=== PATIENT | male | born 1975 | race African-American/Black ===

== ENCOUNTER 2018-12-29 16:26 | Emergency (ER) | payer SELFPAY ==
[2018-12-29] MEDS ORDERED: ASPIRIN 81 MG TABLET, CHEWABLE PO ONE (17:02)
--- NOTE | 2018-12-29 17:05 | ER Document Report ---
ED Medical Screen (RME) - General Chief Complaint: Chest Pain Stated Complaint: CHEST PAIN Time Seen by Provider: 12/29/18 16:56 Primary Care Provider: RAMON PALOMINO MD [NO LOCAL MD] - Follow up as needed Mode of Arrival: Ambulatory Information source: Patient Notes: This 43-year-old male presents emergency department with complaints of some left-sided chest pressure. Reports it started this morning when he woke up. Also complains of some nausea diaphoresis and left arm pain. Patient reports the nausea and left arm pain started last night. Denies history of cardiac disease. Patient does smoke cigarettes and drink alcohol denies recreational drugs. Denies energy drinks. I have greeted and performed a rapid initial assessment of this patient. A comp rehensive ED assessment and evaluation of the patient, analysis of test results and completion of the medical decision making process will be conducted by additional ED providers. Dictation of this chart was performed using voice recognition software; therefore, there may be some unintended grammatical errors. TRAVEL OUTSIDE OF THE [place] IN LAST 30 DAYS: No - HPI Onset: Yesterday Onset/Duration: Sudden Quality of pain: Pressure - Related Data Allergies/Adverse Reactions: No Known Allergies Allergy (Verified 12/29/18 16:26) Past Medical History - General Information source: Patient - Social History Cigarette use (# per day): Yes Frequency of alcohol use: Occasional Lives with: Family Renal/ Medical History: Denies: Hx Peritoneal Dialysis Physical Exam - Vital signs Vitals: Temp Pulse Resp BP Pulse Ox 98.0 F 57 L 16 141/81 H 95 12/29/18 16:29 12/29/18 16:29 12/29/18 16:29 12/29/18 16:29 12/29/18 16:29 Course - Vital Signs Vital signs: Temp Pulse Resp BP Pulse Ox 98.0 F 57 L 16 141/81 H 95 12/29/18 16:29 12/29/18 16:29 12/29/18 16:29 12/29/18 16:29 12/29/18 16:29 - Laboratory Result Diagrams: 12/29/18 17:19 12/29/18 17:19 Laboratory results interpreted by me: 12/29/18 12/29/18 17:19 17:19 RDW 14.3 H Creatine Kinase 173 H Doctor's Discharge - Discharge Referrals: RAMON PALOMINO MD [NO LOCAL MD] - Follow up as needed
[2018-12-29 17:42] LABS: APPEARANCE,URINE CLEAR; BILIRUBIN,URINE NEGATIVE (NEGATIVE); COLOR,URINE YELLOW; GLUCOSE, URINE NEGATIVE (NEGATIVE); KETONES,URINE NEGATIVE (NEGATIVE); LEUKOCYTE ESTERASE,URINE NEGATIVE (NEGATIVE); NITRITE,URINE NEGATIVE (NEGATIVE); PROTEIN,URINE NEGATIVE (NEGATIVE); URINE SPECIFIC GRAVITY 1.025; UROBILINOGEN,URINE NEGATIVE mg/dL (<2.0)
[2018-12-29 17:44] LABS: ABSOLUTE LYMPHOCYTES (AUTO) 2.7 10^3/uL (0.5-4.7); ABSOLUTE MONOCYTES (AUTO) 0.5 10^3/uL (0.1-1.4); BASOPHILS % (AUTO) 0.3 % (0-2); EOSINOPHILS % (AUTO) 0.5 % (0-6); HEMATOCRIT 43.1 % (37.9-51.0); HEMOGLOBIN 14.2 g/dL (13.5-17.0); LYMPHOCYTES % (AUTO) 37.6 % (13-45); MEAN CORPUSCULAR HEMOGLOBIN 28.5 pg (27.0-33.4); MEAN CORPUSCULAR HGB CONC 32.9 g/dL (32.0-36.0); MEAN CORPUSCULAR VOLUME 87 fl (80-97); MONOCYTES % (AUTO) 7.1 % (3-13); PLATELET COUNT 303 10^3/uL (150-450); RED BLOOD COUNT 4.96 10^6/uL (4.35-5.55); RED CELL DISTRIBUTION WIDTH 14.3 % (11.5-14.0); SEGMENTED NEUTROPHILS % (AUTO) 54.5 % (42-78); TOTAL CELLS COUNTED % (AUTO) 100 %; WHITE BLOOD COUNT 7.3 10^3/uL (4.0-10.5)
[2018-12-29 18:00] LABS: ALBUMIN 4.3 g/dL (3.5-5.0); ALKALINE PHOSPHATASE 91 U/L (38-126); ANION GAP 5 (5-19); ASPARTATE AMINO TRANSFERASE 29 U/L (17-59); BILIRUBIN,DIRECT 0.1 mg/dL (0.0-0.4); BILIRUBIN,TOTAL 0.3 mg/dL (0.2-1.3); BLOOD UREA NITROGEN 16 mg/dL (7-20); CALCIUM 9.9 mg/dL (8.4-10.2); CARBON DIOXIDE 29 mmol/L (22-30); CHLORIDE 105 mmol/L (98-107); CREATINE KINASE 173 U/L (55-170); GLUCOSE 108 mg/dL (75-110); POTASSIUM 4.6 mmol/L (3.6-5.0); TOTAL PROTEIN 7.5 g/dL (6.3-8.2)
[2018-12-29 18:12] LABS: NT PRO BNP 33 pg/mL (<125)
[2018-12-29 18:13] LABS: TROPONIN I < 0.012 ng/mL
--- NOTE | 2018-12-29 18:49 | RADIOLOGY REPORT (SQ) ---
EXAM DESCRIPTION: CHEST 2 VIEWS COMPLETED DATE/TIME: 12/29/2018 6:39 pm REASON FOR STUDY: cp COMPARISON: None. EXAM PARAMETERS: NUMBER OF VIEWS: two views TECHNIQUE: Digital Frontal and Lateral radiographic views of the chest acquired. RADIATION DOSE: NA LIMITATIONS: none FINDINGS: LUNGS AND PLEURA: No pneumothorax. No consolidation or pleural effusion. Small area scarr ing the left upper lobe with punctate densities, possibly related to old trauma or procedure. MEDIASTINUM AND HILAR STRUCTURES: No masses or contour abnormalities. HEART AND VASCULAR STRUCTURES: Heart normal size. No evidence for failure. BONES: No acute findings. HARDWARE: None in the chest. OTHER: No other significant finding. IMPRESSION: NO ACUTE RADIOGRAPHIC FINDING IN THE CHEST. TECHNICAL DOCUMENTATION: JOB ID: [id number] [place]-72 2010 [employer]- All Rights Reserved Reading location - IP/workstation name: [email or web address]
[2018-12-29 22:02] VITALS: BP 128/86
--- NOTE | 2018-12-29 22:10 | ER Document Report ---
ED Cardiac - General Chief Complaint: Chest Pain Stated Complaint: CHEST PAIN Time Seen by Provider: 12/29/18 16:56 Primary Care Provider: [facility] [Provider Group] - Follow up as needed JESUS WHITNEY MD [ACTIVE STAFF] - 12/31/18 Mode of Arrival: Ambulatory Notes: Patient is a 43-year-old male that comes emergency department for chief complaint of chest pain. He states that he first noticed that his left arm felt strange and uncomfortable last night and he broke out into a sweat, however this resolved. This morning he had discomfort in his chest, discomfort in his left arm, and he again broke out into a sweat. He also states this happened later in the day. His became concerned and brought him to the emergency department. He states last night he also got nauseated and vomited once. He denies abdominal pain. He denies flank pain, fever/chills, difficulty breathing. He denies any current symptoms. He states he does have sore muscles over his chest but this is different from what he was feeling. He smokes, denies frequent alcohol, denies recreational drugs. Denies family history of [place]. TRAVEL OUTSIDE OF THE [place] IN LAST 30 DAYS: No - Related Data Allergies/Adverse Reactions: No Known Allergies Allergy (Verified 12/29/18 16:26) Past Medical History - General Information source: Patient - Social History Smoking Status: Current Every Day Smoker Cigarette use (# per day): Yes Smoking Education Provided: Yes - <3 min Frequency of alcohol use: Heavy Lives with: Family Family History: Reviewed & Not Pertinent Patient has suicidal ideation: No Patient has homicidal ideation: No Renal/ Medical History: Denies: Hx Peritoneal Dialysis Surgical Hx: Negative - Immunizations Immunizations up to date: Yes Hx Diphtheria, Pertussis, Tetanus Vaccination: Yes Review of Systems - Review of Systems Constitutional: No symptoms reported EENT: No symptoms reported Cardiovascular: See HPI Respiratory: No symptoms reported Gastrointestinal: See HPI Genitourinary: No symptoms reported Male Genitourinary: No symptoms reported Musculoskeletal: No symptoms reported Skin: No symptoms reported Hematologic/Lymphatic: No symptoms reported Neurological/Psychological: No symptoms reported Physical Exam - Vital signs Vitals: Temp Pulse Resp BP Pulse Ox 98.0 F 57 L 16 141/81 H 95 12/29/18 16:29 12/29/18 16:29 12/29/18 16:29 12/29/18 16:29 12/29/18 16:29 - Notes Notes: GENERAL: Alert, interacts well. No acute distress. HEAD: Normocephalic, atraumatic. EYES: Pupils equal, round, and reactive to light. Extraocular movements intact. ENT: Oral mucosa moist, tongue midline. Oropharynx unremarkable. Airway patent. LUNGS: Clear to auscultation bilaterally, no wheezes, rales, or rhonchi. No respiratory distress. HEART: Regular rate and rhythm. No murmur ABDOMEN: Soft, non-tender. Non-distended. Bowel sounds present in all 4 quadrants. GENITOURINARY: Deferred EXTREMITIES: Moves all 4 extremities spontaneously. No edema, normal radial and dorsalis pedis pulses bilaterally. No cyanosis. BACK: no cervical, thoracic, lumbar midline tenderness. No saddle anesthesia, normal distal neurovascular exam. Moves all extremities in full range of motion. NEUROLOGICAL: Alert and oriented x3. Normal speech. Cranial nerves II through XII grossly intact. PSYCH: Normal affect, normal mood. SKIN: Warm, dry, normal turgor. No rashes or lesions noted. Course - Re-evaluation Re-evalutation: Patient's described symptoms are actually very concerning, he states that intermittently gets pain, it is been worse with an episode where he broke out into a sweat, had pain in the left side of his chest radiating to his left shoulder which resolved with time. In addition to this patient has multiple T wave inversions anteriorly and inferiorly. I have no comparison EKG. Chest x-ray unremarkable, troponins are negative, work-up otherwise unremarkable. Patient denying current complaints. Because of his concerning reported symptoms and his abnormal EKG I did discuss with patient and discussed admission. Patient declines. I did discuss with Dr. Chavez. He states that if patient will not agree to admission then he needs to sign out AGAINST MEDICAL ADVICE. I discussed with patient again, I explained our concern, however patient states gratefulness but declines. He does ask for recommendations for follow-up, he does state that he will return if he worsens, he states that he understands that there is a risk that he could go home, have a heart attack, and . He still states he wants to leave. Patient is very alert, friendly, does not appear to be under the influence of any substances, no evidence of altered mental status, he is capable of making this decision. He did discuss with his . Patient signed out AGAINST MEDICAL ADVICE. - Vital Signs Vital signs: Temp Pulse Resp BP Pulse Ox 98.4 F 53 L 18 128/86 H 95 12/29/18 20:46 12/29/18 20:46 12/29/18 22:01 12/29/18 22:00 12/29/18 22:01 - Laboratory Result Diagrams: 12/29/18 17:19 12/29/18 17:19 Laboratory results interpreted by me: 12/29/18 12/29/18 17:19 17:19 RDW 14.3 H Creatine Kinase 173 H - EKG Interpretation by Me Additional EKG results interpreted by me: EKG shows sinus bradycardia at a rate of 54, QTC of 448. Borderline T wave inversions in leads II and III, also has T wave inversions in leads V3, V4, V5, V6. No ST segment changes in consecutive leads. No previous to compare to. Discharge - Discharge Clinical Impression: Chest pain Qualifiers: Chest pain type: unspecified Qualified Code(s): R07.9 - Chest pain, unspecified Condition: Stable Disposition: HOME, SELF-CARE Additional Instructions: Your symptoms and your EKG are concerning that the symptoms of pain you are having could be from your heart. You have declined admission to the hospital and signed out AGAINST MEDICAL ADVICE. If you do progress to a heart attack you could have severe disability or even . I do recommend that you return at any time here or at another medical facility. You have been provided with referrals to primary care, cardiology. Stop smoking, avoid heavy drinking, and I recommend that you take [id number] antacid such as famotidine. Referrals: [facility] [Provider Group] - Follow up as needed JESUS WHITNEY MD [ACTIVE STAFF] - 12/31/18
--- NOTE | 2018-12-30 01:54 | EKG REPORT ---
SEVERITY:- ABNORMAL ECG - SINUS RHYTHM LEFT ANTERIOR FASCICULAR BLOCK NONSPECIFIC T ABNORMALITIES, DIFFUSE LEADS : Confirmed by: My Cool MD 30-Dec-2018 01:54:05
== END 2018-12-29 22:59 | disposition home or self-care (01) ==
LOC: ER 16:26
DX: R07.9 Chest pain, unspecified (principal); R61 Generalized hyperhidrosis; M79.602 Pain in left arm; R11.2 Nausea with vomiting, unspecified; F17.210 Nicotine dependence, cigarettes, uncomplicated
CPT/HCPCS: 36415; 71046; 80053; 81001; 82550; 83690; 83880; 84484; 85025; 93005; 93010; 99285

== ENCOUNTER 2019-04-20 07:14 | Emergency (ER) | payer SELFPAY ==
--- NOTE | 2019-04-20 08:54 | ER Document Report ---
ED Neck/Back Problem - General Chief Complaint: Back Injury Stated Complaint: BACK PAIN Time Seen by Provider: 04/20/19 08:53 TRAVEL OUTSIDE OF THE [place] IN LAST 30 DAYS: No - HPI Notes: 43-year-old male to the emergency department with complaints of low back pain for the past several days. He states that one week ago he fell down 5-6 stairs in his home. He states that he just slipped at the week coming down the carpet. He states that he struck his low back and has been having pain since. He denies any numbness and tingling to his legs or pain into the back of his legs, saddle paresthesia, bladder bowel incontinence, inability to urinate, fevers, or any other injuries. He does not use IV drugs. He states he took some Motrin but that did not completely relieve his pain so his mom gave him 1 of her Tylenol 3's. He states that this did help but he was concerned when the pain did not get better. He states that he has more pain in the morning and feels stiff. He also has pain when twisting and getting up from sitting to standing. He denies any other symptoms. - Related Data Allergies/Adverse Reactions: No Known Allergies Allergy (Verified 04/20/19 08:02) Home Medications: NO MEDS Past Medical History - General Information source: Patient - Social History Smoking Status: Never Smoker Frequency of alcohol use: Occasional Drug Abuse: None Family History: Reviewed & Not Pertinent Patient has suicidal ideation: No Patient has homicidal ideation: No Renal/ Medical History: Denies: Hx Peritoneal Dialysis - Immunizations Immunizations up to date: Yes Hx Diphtheria, Pertussis, Tetanus Vaccination: Yes Review of Systems - Review of Systems Constitutional: denies: Chills, Fever EENT: No symptoms reported Cardiovascular: denies: Chest pain, Palpitations, Syncope, Dizziness, Lightheaded Respiratory: denies: Cough, Short of breath Gastrointestinal: denies: Abdominal pain, Diarrhea, Nausea, Vomiting Genitourinary: denies: Incontinence Musculoskeletal: Back pain. denies: Joint pain, Joint swelling Skin: No symptoms reported. denies: Rash Neurological/Psychological: No symptoms reported -: Yes All other systems reviewed and negative Physical Exam - Vital signs Vitals: Temp Pulse Resp BP Pulse Ox 98.2 F 65 16 134/80 H 95 04/20/19 07:18 04/20/19 07:18 04/20/19 07:18 04/20/19 07:18 04/20/19 07:18 Interpretation: Normal - General General appearance: Appears well, Alert In distress: None - HEENT Head: Normocephalic, Atraumatic Eyes: Normal Pupils: PERRL - Respiratory Respiratory status: No respiratory distress Chest status: Nontender. No: Accessory muscle use Breath sounds: Normal. No: Productive cough, Rales, Rhonchi, Wheezing Chest palpation: Normal - Cardiovascular Rhythm: Regular Heart sounds: Normal auscultation Murmur: No - Abdominal Inspection: Normal Distension: No distension Bowel sounds: Normal Tenderness: Nontender. No: McBurney's point, Lucero's sign Organomegaly: No organomegaly - Back Back: Nontender Notes: Nontender to palpation of the midline cervical and thoracic spine with no step-o ff deformity. There is tenderness to palpation to the lower midline lumbar spine. There is no step-off or deformity. Negative straight leg raise bilaterally. Patient can get up and walk without difficulty. He does have some pain when he is going from sitting to standing. He also has pain with twisting. However his back range of motion is fully intact against resistance with no weakness. - Extremities Notes: Nontender to palpation of bilateral upper extremity and bilateral lower extremity. Patient has full range of motion in bilateral upper extremity and bilateral lower extremity against resistance in flexion and extension with 5 out of 5 strength. Cap refill is intact. Pulses are intact and equal throughout. - Neurological Neuro grossly intact: Yes Cognition: Normal Orientation: AAOx4 [place] Coma Scale Eye Opening: Spontaneous [place] Coma Scale Verbal: Oriented [place] Coma Scale Motor: Obeys Commands Boom Coma Scale Total: 15 Speech: Normal Cranial nerves: Normal. No: Facial palsy, Forehead sparing, Gaze palsy, Sensory deficit, Tongue deviation Cerebellar coordination: Normal. No: Gait ataxia Motor strength normal: LUE, RUE, LLE, RLE Additional motor exam normals: Equal bacon skinner. No: Pronator drift Sensory: Normal - Psychological Associated symptoms: Normal affect, Normal mood - Skin Skin Temperature: Warm Skin Moisture: Dry Skin Color: Normal Course - Re-evaluation Re-evalutation: 04/20/19 10:31 X-ray lumbar spine preliminary reading by me. No acute fracture, noted degenerative disc disease at the level of L5-S1 Impression: Fall, lumbar back strain. Incidental finding of degenerative disc disease on x-ray. No fracture seen no subluxation seen. We will send patient home with muscle relaxants, NSAIDs, small amount t#3. Encouraged to apply warm compresses. We will have him follow with orthopedist if his symptoms do not improve in the next 10 days. He has no straight leg raise, he has no emergent back symptoms. Was encouraged to return if any develop. - Vital Signs Vital signs: Temp Pulse Resp BP Pulse Ox 98.2 F 65 16 134/80 H 95 04/20/19 07:18 04/20/19 07:18 04/20/19 07:18 04/20/19 07:18 04/20/19 07:18 - Diagnostic Test Radiology reviewed: Image reviewed Discharge - Discharge Clinical Impression: Degenerative disc disease at L5-S1 level Fall Qualifiers: Encounter type: initial encounter Qualified Code(s): W19.XXXA - Unspecified fall, initial encounter Lumbar strain Qualifiers: Encounter type: initial encounter Qualified Code(s): S39.012A - Strain of muscle, fascia and tendon of lower back, initial encounter Condition: Stable Disposition: HOME, SELF-CARE Instructions: Low Back Pain ([facility]), Muscle Strain ([facility]), Warm Packs ([facility]) Additional Instructions: Push fluids. Apply warm compresses for 3 times a day 20 minutes at a time. Gentle stretching. Take medicine as prescribed. If your pain does not improve in the next 10 days follow-up with orthopedist. Follow-up with primary care physician next week. Return if any bladder or bowel incontinence, numbness and tingling around the rectum or penis, pain and weakness into the legs, inability to urinate, fevers. Prescriptions: Cyclobenzaprine HCl [Flexeril 10 mg Tablet] 10 mg PO TID #21 tablet Ibuprofen [Motrin 800 mg Tablet] 800 mg PO Q8H PRN #30 tab PRN Reason: Acetaminophen with Codeine [Tylenol #3 Tablet] 1 each PO Q6H PRN #9 tablet PRN Reason: Referrals: [facility] [Provider Group] - Follow up in 1 week JORGITO DE LA TORRE JR, DO [ACTIVE PROVISIONAL STAFF] - Follow up as needed
[2019-04-20] MEDS ORDERED: KETOROLAC TROMETHAMINE 60 MG/2 ML SDV IM ONE (10:27)
--- NOTE | 2019-04-20 10:36 | RADIOLOGY REPORT (SQ) ---
EXAM DESCRIPTION: L SPINE WHOLE COMPLETED DATE/TIME: 04/20/2019 10:03 am REASON FOR STUDY: fall, lumbar back pain COMPARISON: None. NUMBER OF VIEWS: Five views including obliques. TECHNIQUE: AP, lateral, oblique, and sacral radiographic images acquired of the lumbar spine. LIMITATIONS: None. FINDINGS: MINERALIZATION: Normal. SEGMENTATION: Sacralization of L5 to left of midline with a pseudoarthrosis. ALIGNMENT: Normal. VERTEBRAE: Maintained height. No fracture or worrisome bone lesion. DISCS: Disc space narrowing L5-S1. POSTERIOR ELEMENTS: Pedicles and facets are intact. No pars defect or posterior arch defects. HARDWARE: None in the spine. PARASPINAL SOFT TISSUES: Normal. PELVIS: Intact as visualized. No fractures or worrisome bone lesions. SI joints intact. OTHER: No other significant finding. IMPRESSION: No acute findings. TECHNICAL DOCUMENTATION: JOB ID: [id number] [employer]- All Rights Reserved Reading location - IP/workstation name: [email or web address]
[2019-04-20 10:48] VITALS: BP 143/79
== END 2019-04-20 10:51 | disposition home or self-care (01) ==
LOC: ER 07:14
DX: S39.012A Strain of muscle, fascia and tendon of lower back, initial encounter (principal); M51.37 Other intervertebral disc degeneration, lumbosacral region; W10.9XXA Fall (on) (from) unspecified stairs and steps, initial encounter; Y92.009 Unspecified place in unspecified non-institutional (private) residence as the place of occurrence of the external cause
CPT/HCPCS: 72110; J1885; 96372; 99283

== ENCOUNTER 2019-05-09 07:31 | Emergency (ER) | payer SELFPAY ==
--- NOTE | 2019-05-09 10:29 | ER Document Report ---
HPI - HPI Patient complains to provider of: finger infection Time Seen by Provider: 05/09/19 10:02 Onset: This morning Onset/Duration: Sudden Pain Level: 2 Notes: 44-year-old male to the emergency department with complaints of right index finger pain and swelling around his nail bed that he first noticed this morning. He does admit that he bites his fingernails. He states that it is throbbing with pain. He has not taken anything for the pain. He denies any injury to the finger. He denies any other complaints today. He is right-hand dominant. - CONSTITUTIONAL Constitutional: DENIES: Fever, Chills - EENT EENT: DENIES: Sore Throat, Ear Pain, Eye problems - NEURO Neurology: DENIES: Headache, Weakness, Vision blurred, Dizzinesss / Vertigo - CARDIOVASCULAR Cardiovascular: DENIES: Chest pain - RESPIRATORY Respiratory: DENIES: Trouble Breathing, Coughing - REPRODUCTIVE Reproductive: DENIES: : - MUSCULOSKELETAL Musculoskeletal: DENIES: Extremity pain Past Medical History - General Information source: Patient - Social History Smoking Status: Current Every Day Smoker Chew tobacco use (# tins/day): No Frequency of alcohol use: Occasional Drug Abuse: None Family History: Reviewed & Not Pertinent Patient has suicidal ideation: No Patient has homicidal ideation: No Renal/ Medical History: Denies: Hx Peritoneal Dialysis - Immunizations Immunizations up to date: Yes Hx Diphtheria, Pertussis, Tetanus Vaccination: Yes Vertical Provider Document - CONSTITUTIONAL Exam Limitations: No Limitations General Appearance: WD/WN, No Apparent Distress - INFECTION CONTROL TRAVEL OUTSIDE OF THE [place] IN LAST 30 DAYS: No - HEENT HEENT: Atraumatic, PERRLA - NECK Neck: Normal Inspection, Supple - RESPIRATORY Respiratory: Breath Sounds Normal. negative: Rales, Rhonchi, Wheezing - CARDIOVASCULAR Cardiovascular: Regular Rate, Regular Rhythm, No Murmur - GI/ABDOMEN Gastrointestinal: Abdomen Soft. negative: Abdomen Tender, Abdominal Guarding, Abdominal Rebound, Abdominal Mass - MUSCULOSKELETAL/EXTREMETIES Notes: to the right index finger there is noted erythema, edema, and likely purulence surrounding the nailbed most consistent with paronychia. The erythema does not extend into the pad of the finger to suggest felon. There is no circumferential edema, no TTP along the tendon sheath, and the finger is not stuck in flexion. cap refill is less than 2 sec. FROM of all fingers against resistance in extension, flexion, adduction, abduction. No snuff box tenderness bilaterally. Radial pulses intact and equal. - NEURO Level of Consciousness: Awake Motor/Sensory: No Motor Deficit, No Sensory Deficit, No Pronator Drift - DERM Integumentary: Warm Notes: see MS for further discussion of right index finger paronychia. Course - Re-evaluation Re-evalutation: 05/09/19 Impression: Right index finger paronychia. Patient tolerated I and D well. Will place on ABx. Also will write for Motrin. PCP follow up in one week. Return if worsening pain, redness, swelling, or fevers. - Vital Signs Vital signs: Temp Pulse Resp BP Pulse Ox 97.9 F 71 16 134/87 H 95 05/09/19 07:43 05/09/19 07:43 05/09/19 07:43 05/09/19 07:43 05/09/19 07:43 Procedures - Incision and Drainage Right Finger 2nd digit Type: Simple Anesthetic type: 1% Lidocaine mL's of anesthetic: 5 Blade size: 11 I&D procedure: Betadine prep applied Incision Method: Incision made by scalpel Amount/type of drainage: bloody purulent discharge from around the nailbed. Notes: 05/09/19 digital block was performed to the right index finger. Once anesthesized, an 11 blade scalpel was inserted along the edge of the nailbed where bloody and purulent drainage erupted from the site. Patient tolerated the procedure well. Discharge - Discharge Clinical Impression: Paronychia of finger Qualifiers: Laterality: right Qualified Code(s): L03.011 - Cellulitis of right finger Condition: Stable Disposition: HOME, SELF-CARE Instructions: Paronychia ([facility]), Trimethoprim-Sulfa ([facility]) Additional Instructions: COMPLETE ALL ANTIBIOTICS. TRY NOT TO BITE NAILS. CLEAN DAILY WITH WARM SOAPY WATER. MOTRIN FOR PAIN. MAY APPLY WARM COMPRESS THREE TIMES A DAY FOR 15 MINUTES. RETURN IF WORSENING PAIN, REDNESS, SWELLING, OR FEVERS. Prescriptions: Ibuprofen [Motrin 600 mg Tablet] 600 mg PO Q8HP PRN #24 tablet PRN Reason: Sulfamethoxazole/Trimethoprim [Bactrim Ds Tablet] 1 each PO BID #20 tablet Referrals: [facility] [Provider Group] - Follow up in 1 week (for wound check)
[2019-05-09 11:11] VITALS: BP 142/95
== END 2019-05-09 11:18 | disposition home or self-care (01) ==
LOC: ER 07:31
DX: L03.011 Cellulitis of right finger (principal); F17.200 Nicotine dependence, unspecified, uncomplicated
CPT/HCPCS: 99283

== ENCOUNTER 2020-03-06 10:49 | Emergency (ER) | payer MEDICAID ==
[2020-03-06] MEDS ORDERED: METRONIDAZOLE 500 MG TABLET PO ONE (11:18)
[2020-03-06] MEDS ORDERED: AZITHROMYCIN 250 MG TABLET PO ONE (11:18)
[2020-03-06] MEDS ORDERED: CEFTRIAXONE INJ 250 MG VIAL IM ONE (11:18)
[2020-03-06] MEDS ORDERED: LIDOCAINE 1% INJ (10 MG/ML) 10 ML MDV INJ ONE (11:19)
--- NOTE | 2020-03-06 11:19 | ER Document Report ---
HPI - HPI Patient complains to provider of: Dysuria Time Seen by Provider: 03/06/20 11:17 Onset: Yesterday Quality of pain: Burning Pain Level: 2 Context: Patient presents complaining of dysuria and concerns about possible UTI. Patient reports symptoms started yesterday. Patient denies any abdominal tenderness or back pain. Patient denies any fever. Patient does report recent unprotected sex with a new partner. Associated Symptoms: denies: Fever, Nausea, Vomiting Exacerbated by: Denies Relieved by: Denies Similar symptoms previously: No Recently seen / treated by doctor: No - ROS ROS below otherwise negative: Yes Systems Reviewed and Negative: Yes All other systems reviewed and negative - CONSTITUTIONAL Constitutional: DENIES: Fever, Chills - GASTROINTESTINAL Gastrointestinal: DENIES: Abdominal Pain - URINARY Urinary: REPORTS: Dysuria - MUSCULOSKELETAL Musculoskeletal: DENIES: Back Pain - DERM Skin Color: Normal Skin Problems: None Past Medical History - General Information source: Patient - Social History Smoking Status: Never Smoker Frequency of alcohol use: Occasional Drug Abuse: None Occupation: none Family History: Reviewed & Not Pertinent - Medical History Medical History: Negative Renal/ Medical History: Denies: Hx Peritoneal Dialysis Surgical Hx: Negative - Immunizations Immunizations up to date: Yes Hx Diphtheria, Pertussis, Tetanus Vaccination: Yes Vertical Provider Document - CONSTITUTIONAL Agree With Documented VS: Yes Exam Limitations: No Limitations General Appearance: WD/WN, No Apparent Distress - INFECTION CONTROL TRAVEL OUTSIDE OF THE [place] IN LAST 30 DAYS: No - HEENT HEENT: Atraumatic, Normocephalic - NECK Neck: Normal Inspection, Supple - RESPIRATORY Respiratory: Breath Sounds Normal, No Respiratory Distress - CARDIOVASCULAR Cardiovascular: Regular Rate, Regular Rhythm - GI/ABDOMEN Gastrointestinal: Abdomen Soft - BACK Back: Normal Inspection. negative: CVA Tenderness-Right, CVA Tenderness-Left - MUSCULOSKELETAL/EXTREMETIES Musculoskeletal/Extremeties: MAEW, FROM - NEURO Level of Consciousness: Awake, Alert, Appropriate Motor/Sensory: No Motor Deficit - DERM Integumentary: Warm, Dry, No Rash Course - Vital Signs Vital signs: Temp Pulse Resp BP Pulse Ox 99.0 F 66 18 134/78 H 97 03/06/20 11:01 03/06/20 11:01 03/06/20 11:01 03/06/20 11:01 03/06/20 11:01 - Laboratory Laboratory results interpreted by me: 03/06/20 12:30 Labs- All tests 24 hr 03/06/20 11:30 Urine Color YELLOW Urine Appearance CLEAR Urine pH 5.0 Ur Specific [place] 1.032 Urine Protein 30 H Urine Glucose (UA) NEGATIVE Urine Ketones NEGATIVE Urine Blood NEGATIVE Urine Nitrite NEGATIVE Urine Bilirubin NEGATIVE Urine Urobilinogen NEGATIVE Ur Leukocyte Esterase NEGATIVE Urine WBC (Auto) 1 Urine RBC (Auto) 1 Squamous Epi Cells Auto <1 Urine Mucus (Auto) OCC Urine Ascorbic Acid 40 H Discharge - Discharge Clinical Impression: Dysuria, Concern about STD in male without diagnosis Condition: Stable Disposition: HOME, SELF-CARE Instructions: Azithromycin ([facility]), Metronidazole ([facility]), Rocephin ([facility]) Additional Instructions: Return immediately for any new or worsening symptoms Followup with your primary care provider, call tomorrow to make a followup appointment Culture is still pending, we will call if you need any different treatment Referrals: JOHN,NO [Primary Care Provider] - Follow up as needed [facility] [NO LOCAL MD] - Follow up as needed
[2020-03-06 12:18] LABS: APPEARANCE,URINE CLEAR; BILIRUBIN,URINE NEGATIVE (NEGATIVE); COLOR,URINE YELLOW; GLUCOSE, URINE NEGATIVE (NEGATIVE); KETONES,URINE NEGATIVE (NEGATIVE); LEUKOCYTE ESTERASE,URINE NEGATIVE (NEGATIVE); NITRITE,URINE NEGATIVE (NEGATIVE); PROTEIN,URINE 30 mg/dL (NEGATIVE); URINE SPECIFIC GRAVITY 1.032; UROBILINOGEN,URINE NEGATIVE mg/dL (<2.0)
[2020-03-06 12:35] VITALS: BP 133/90
[2020-03-06 13:42] LABS: CHLAM PCR NOT DETECTED (NOT DETECT)
== END 2020-03-06 12:32 | disposition home or self-care (01) ==
LOC: ER 10:49
DX: R30.0 Dysuria (principal); Z20.2 Contact with and (suspected) exposure to infections with a predominantly sexual mode of transmission
CPT/HCPCS: 99284; 96372; 81001; 87491; 87591; Q0144; J3490 ×2; J0696

== ENCOUNTER 2020-03-07 12:15 | Emergency (ER) | payer MEDICAID ==
--- NOTE | 2020-03-07 12:49 | ER Document Report ---
ED General - General Stated Complaint: COUGH, BODY ACHES, CHILLS Time Seen by Provider: 03/07/20 12:49 Primary Care Provider: IMAN MARRERO DO [NO LOCAL MD] - Follow up as needed TRAVEL OUTSIDE OF THE [place] IN LAST 30 DAYS: No - HPI Notes: 44-year-old male presents emergency room for complaints of having congestion, body aches and a sore throat that started last night. Patient states he has not been exposed to "as far as he now has never been tested for COVID and has not been around anybody that he thinks is positive for COVID. Patient has not tried any [id number] medications, states is worse with time, nothing makes better. Patient is unsure if he has any seasonal allergies but does not take any antihistamines. Eating and drinking without any issues. Patient was not sure if the symptoms may be because he is HIV because he googled last night that cold symptoms can mimic HIV. denies fevers, chills, chest pain,palpitations, shortness of breath, dyspnea, nausea, vomiting, diarrhea, abdominal pain, hematuria,blurred vision, double vision, loss of vision, speech changes, LH, dizziness, syncope, headaches, wheezing, neck pain, weakness, bowel or bladder dysfunction, saddle anesthesia, numbness or tingling in bilateral upper or lower extremities equally, muscle paralysis, weakness in bilateral upper or lower extremities equally or rash. MEDICATIONS: I agree with the patient medications as charted by the RN. ALLERGIES: I agree with the allergies as charted by the RN. PAST MEDICAL HISTORY/PAST SURGICAL HISTORY: Reviewed and agree as charted by RN. SOCIAL HISTORY: Reviewed and agree as charted by RN. FAMILY HISTORY: No significant familial comorbid conditions directly related to patient complaint EXAM: Reviewed vital signs as charted by RN. REVIEW OF SYSTEMS:reviewed vital signs by RN CONSTITUTIONAL : Denies fever, chills, or sweats. Denies recent illness. EENT: Denies eye, ear, throat, or mouth pain or symptoms. Denies nasal or sinus congestion or discharge. Denies throat, tongue, or mouth swelling or difficulty swallowing. CARDIOVASCULAR: Denies chest pain. Denies palpitations or racing or irregular heart beat. Denies ankle edema. RESPIRATORY: Denies cough, cold, or chest congestion. Denies shortness of breath, difficulty breathing, or wheezing. GASTROINTESTINAL: Denies abdominal pain or distention. Denies nausea, vomiting, or diarrhea. Denies blood in vomitus, stools, or per rectum. Denies black, tarry stools. Denies constipation. GENITOURINARY: Denies difficulty urinating, painful urination, burning, frequency, blood in urine, or discharge. MUSCULOSKELETAL: Denies back or neck pain or stiffness. Denies joint pain or swelling. SKIN: Denies rash, lesions or sores. HEMATOLOGIC : Denies easy bruising or bleeding. LYMPHATIC: Denies swollen, enlarged glands. NEUROLOGICAL: Denies confusion or altered mental status. Denies passing out or loss of consciousness. Denies dizziness or lightheadedness. Denies headache. Denies weakness or paralysis or loss of use of either side. Denies problems with gait or speech. Denies sensory loss, numbness, or tingling. Denies seizures. PSYCHIATRIC: Denies anxiety or stress. Denies depression, suicidal ideation, or homicidal ideation. ALL OTHER SYSTEMS REVIEWED AND NEGATIVE. Dictation was performed using [employer] voice recognition software PHYSICAL EXAMINATION: GENERAL: Well-appearing, well-nourished and in no acute distress. HEAD: Atraumatic, normocephalic. EYES: Pupils equal round and reactive to light, extraocular movements intact, sclera anicteric, conjunctiva are normal. ENT: Nares patent, oropharynx clear without exudates. Moist mucous membranes. NECK: Normal range of motion, supple without lymphadenopathy LUNGS: Breath sounds clear to auscultation bilaterally and equal. No wheezes rales or rhonchi. HEART: Regular rate and rhythm without murmurs ABDOMEN: Soft, nontender, nondistended abdomen. No guarding, no rebound. No masses appreciated. Musculoskeletal: Normal range of motion, no pitting or edema. No cyanosis. NEUROLOGICAL: Cranial nerves grossly intact. Normal speech, normal gait. Normal sensory, motor exams PSYCH: Normal mood, normal affect. SKIN: Warm, Dry, normal turgor, no rashes or lesions noted. - Related Data Allergies/Adverse Reactions: No Known Allergies Allergy (Verified 03/06/20 11:19) Past Medical History - General Information source: Patient - Social History Smoking Status: Unknown if Ever Smoked Family History: Reviewed & Not Pertinent Renal/ Medical History: Denies: Hx Peritoneal Dialysis - Immunizations Immunizations up to date: Yes Hx Diphtheria, Pertussis, Tetanus Vaccination: Yes Physical Exam - Vital signs Vitals: Temp Pulse Resp BP Pulse Ox 98.8 F 81 16 146/86 H 98 03/07/20 12:19 03/07/20 12:19 03/07/20 12:19 03/07/20 12:19 03/07/20 12:19 Course - Re-evaluation Re-evalutation: 03/07/20 17:43 Afebrile vital stable no distress. Nurses notes reviewed. Rapid flu rapid strep and chest x-ray all unremarkable. Will obtain a COVID test due to patient being a PUI. Discussed with patient that once he is cleared pending the COVID results, it is recommended that he go to the health department and get HIV tested if he feels that something he needs. Patient was recently evaluated yesterday for TB now he is convinced he has HIV because he is having some congestion and body aches today. Advised to self quarantine, wash hands frequently and stay home until results of COVID tests is known. After performing a Medical Screening Examination, I estimate there is LOW risk for ACUTE CORONARY SYNDROME, PULMONARY EMBOLI, RESPIRATORY FAILURE, SEPSIS OR MENINGITIS, thus I consider the discharge disposition reasonable. I have reevaluated this patient multiple times and no significant life threatening changes are noted. The patient and I have discussed the diagnosis and risks, and we agree with discharging home with close follow-up. We also discussed returning to the Emergency Department immediately if new or worsening symptoms occur. We have discussed the symptoms which are most concerning (e.g., changing or worsening pain, trouble swallowing or breathing, neck stiffness, fever) that necessitate immediate return. - Vital Signs Vital signs: Temp Pulse Resp BP Pulse Ox 98.8 F 64 14 110/78 96 03/07/20 12:19 03/07/20 15:30 03/07/20 15:30 03/07/20 15:30 03/07/20 15:30 Discharge - Discharge Clinical Impression: Person under investigation for COVID-19 Condition: Stable Disposition: HOME, SELF-CARE Instructions: Viral Syndrome ([facility]) Additional Instructions: UPPER RESPIRATORY ILLNESS: You have a viral infection of the respiratory passages -- a "cold." This common infection causes nasal congestion, drainage, and often sore throat and cough. It is highly contagious. The disease usually lasts about 10 to 14 days. There is no "cure" for the viral infection -- it must run its course. If there is a complication, such as bacterial infection in the nose, sinuses, middle ear, or bronchial tubes, antibiotics may be required. The antibiotics won't affect the virus. Drink plenty of fluids. A humidifier may help. An expectorant medication or decongestant may make you more comfortable. Use acetaminophen or ibuprofen for fever or aches. See the doctor if fever persists over two days, if there is any significant worsening of your symptoms, or if you simply fail to improve as expected. USE OF ACETAMINOPHEN (Tylenol): Acetaminophen may be taken for pain relief or fever control. It's much safer than aspirin, offering a wider range of "safe" dosages. It is safe during . Some brand names are Tylenol, Panadol, Datril, Anacin 3, Tempra, and Liquiprin. Acetaminophen can be repeated every four hours. The following are maximum recommended dosages: >89 pounds or adults 650 mg to 900 mg Acetaminophen can be repeated every four hours. Maximum dose not to exceed 4000 mg a day. SMOKING: If you smoke, you should stop smoking. The tar and chemicals in cigarette smoke are harmful. Smoking has been shown to cause: emphysema chronic bronchitis lung cancer mouth and throat cancer stomach and pancreas cancer premature aging defects In addition, smoking increases ear and lung infections in children of smokers. FOLLOW-UP CARE: If you have been referred to a physician for follow-up care, call the physicians office for an appointment as you were instructed or within the next two days. If you experience worsening or a significant change in your symptoms, notify the physician immediately or return to the Emergency Department at any time for re-evaluation. Please self quarantine until culture results have resulted, wash hands regularly, wear your mask when around other individuals in your household. Return immediately for any new or worsening symptoms. Follow up with primary care provider, call tomorrow to make followup appointment. Referrals: IMAN MARRERO, DO [NO LOCAL MD] - Follow up as needed
--- NOTE | 2020-03-07 13:23 | RADIOLOGY REPORT (SQ) ---
EXAM DESCRIPTION: CHEST SINGLE VIEW IMAGES COMPLETED DATE/TIME: 03/07/2020 1:12 pm REASON FOR STUDY: cough COMPARISON: 12/29/2018 TECHNIQUE: Single frontal radiographic view of the chest acquired. NUMBER OF VIEWS: One view. LIMITATIONS: None. FINDINGS: LUNGS AND PLEURA: No pneumothorax. Similar left upper lobe scarring. No consolidation or pleural effusion. MEDIASTINUM AND HILAR STRUCTURES: Stable. HEART AND VASCULAR STRUCTURES: Stable. BONES: No acute findings. HARDWARE: None in the chest. OTHER: Similar multiple punctate metallic foreign bodies in the upper left chest. IMPRESSION: NO ACUTE FINDINGS. TECHNICAL DOCUMENTATION: JOB ID: [id number] [id number] 2010 [employer]- All Rights Reserved Reading location - IP/workstation name: [email or web address]
[2020-03-07 14:48] LABS: A TYPE INFLUENZA AG NEGATIVE (NEGATIVE); B INFLUENZA AG NEGATIVE (NEGATIVE)
[2020-03-07 15:41] VITALS: BP 110/78
== END 2020-03-07 15:30 | disposition home or self-care (01) ==
LOC: ER 12:15
DX: Z20.828 Contact with and (suspected) exposure to other viral communicable diseases (principal); J02.9 Acute pharyngitis, unspecified
CPT/HCPCS: 99284; 87070; 87880; 87635; 87804; 71045; C9803